=== PATIENT | female | born 1995 | race Hispanic/Latino ===

== ENCOUNTER 2024-05-15 17:45 | Day surgery (SDC) | payer OTHER ==
[2024-05-15] MEDS ORDERED: hydrALAZINE 20 MG/ML VIAL SLOW IVP PRN (18:04)
[2024-05-15 18:32] VITALS: BMI 35.1
[2024-05-15 19:55] LABS: Bilirubin Neg (Negative); Blood, Urine Negative (Negative); Clarity Clear (Clear); Glucose, Urine (Dipstick) Normal (Negative); Ketone, Urine Negative (Negative); Leukocyte Negative (Negative); Nitrite Negative (Negative); Protein, Urine (Dipstick) Negative (Neg-Trace); Specific Gravity, Urine 1.015 (1.005-1.030); Urobilinogen Normal mg/dL (Less than 2)
[2024-05-15 20:24] LABS: Bacteria/HPF Rare-Few HPF (None Seen); CAUTI Indications for Culture Pregnancy; RBC/HPF None Seen HPF (0-3); Squamous Epithelial 0-3 HPF (0-3); Urine Culture Reflex Yes Yes; WBC/HPF 0-3 HPF (0-3)
[2024-05-15] MEDS ORDERED: Lactated Ringer's 1,000 ML IV SCH (20:45)
== END 2024-05-15 18:53 | disposition home or self-care (01) ==
LOC: CSHLD/OP 17:45
PROVIDERS: ATTEND Emergency Medicine
DX: O47.03 False labor before 37 completed weeks of gestation, third trimester (principal); O99.213 Obesity complicating pregnancy, third trimester; Z3A.28 28 weeks gestation of pregnancy
CPT/HCPCS: 76817; 81001; 87086; 87480; 87510; 87660; 96360; 96365; 99284

== ENCOUNTER 2024-07-22 09:25 | Day surgery (SDC) | payer OTHER | END 2024-07-22 12:09 | disposition home or self-care (01) | LOC: CSHLD/OP 09:25 | PROVIDERS: ATTEND Emergency Medicine | DX: O47.1 False labor at or after 37 completed weeks of gestation (principal); O99.013 Anemia complicating pregnancy, third trimester; Z79.899 Other long term (current) drug therapy; Z98.890 Other specified postprocedural states; Z98.84 Bariatric surgery status; Z3A.38 38 weeks gestation of pregnancy | CPT/HCPCS: 99282 ==

== ENCOUNTER 2024-08-01 09:20 | Day surgery (SDC) | payer OTHER ==
[2024-08-01] MEDS ORDERED: hydrALAZINE 20 MG/ML VIAL SLOW IVP PRN (09:59)
[2024-08-01 10:18] VITALS: BMI 34.7
== END 2024-08-01 10:31 | disposition home or self-care (01) ==
LOC: CSHLD/OP 09:20
PROVIDERS: ATTEND Student in an Organized Health Care Education/Training Program
DX: O47.1 False labor at or after 37 completed weeks of gestation (principal); O99.891 Other specified diseases and conditions complicating pregnancy; R06.02 Shortness of breath; O99.213 Obesity complicating pregnancy, third trimester; O99.013 Anemia complicating pregnancy, third trimester; Z3A.39 39 weeks gestation of pregnancy; Z79.899 Other long term (current) drug therapy
CPT/HCPCS: 99282

== ENCOUNTER 2024-08-04 19:00 | Inpatient (IN) | payer OTHER ==
[2024-08-04 23:27] VITALS: BMI 34.7
[2024-08-05] MEDS ORDERED: Tranexamic Acid 1,000 MG/10 ML VIAL IVP PRN (01:00)
[2024-08-05] MEDS ORDERED: Lactated Ringer's 1,000 ML IV SCH (01:00)
[2024-08-05] MEDS ORDERED: Lidocaine 1% (PF) 30 ML VIAL SC PRN (01:00)
[2024-08-05] MEDS ORDERED: Ondansetron PF 4 MG/2 ML Vial IVP PRN ×3 (01:00→13:56)
[2024-08-05] MEDS ORDERED: hydrALAZINE 20 MG/ML VIAL SLOW IVP PRN ×2 (01:00→13:56)
[2024-08-05] MEDS ORDERED: Promethazine HCl 25 MG/ML VIAL IM PRN ×3 (01:00→13:56)
[2024-08-05] MEDS ORDERED: Diphenoxylate HCl/Atropine Tablet PO PRN (01:00)
[2024-08-05] MEDS ORDERED: Oxytocin 30 units/NS 500 ML 500 ML IV SCH (01:00)
[2024-08-05] MEDS ORDERED: Acetaminophen 500 MG TAB PO PRN (01:00)
[2024-08-05] MEDS ORDERED: Methylergonovine 0.2 MG/ML VIAL IM PRN (01:00)
[2024-08-05 01:28] LABS: Hematocrit 31.8 % (34.9-44.5); Hemoglobin 10.6 g/dL (12.0-15.5); Mean Corpuscular HGB CONC 33.3 g/dL (32.0-36.0); Mean Corpuscular Hemoglobin 27.7 pg (27.0-33.0); Mean Corpuscular Volume 83.2 fL (81.6-98.3); Mean Platelet Volume 9.2 fL (7.4-10.4); Platelet Count 241 10x3/uL (150-450); RBC Distribution Width 14.6 % (11.5-14.5); Red Blood Cell (RBC) Count 3.82 10x6/uL (3.90-5.03); White Blood Cell (WBC) Count 6.5 10x3/uL (3.5-10.5)
[2024-08-05 02:04] LABS: HBsAg Index 0.18 S/CO (0-0.99); Hep B Surf Ag - L&D Non-Reactive S/CO (NonReactive)
[2024-08-05 02:05] LABS: Syphilis Antibody Nonreactive (Nonreactive); Syphilis Antibody Index 0.05 S/CO (<1.00 Non-Reactive)
[2024-08-05] MEDS: Misoprostol 100 MCG TAB VAG SCH (03:00)
[2024-08-05] MEDS: fentaNYL/Ropivacaine Epidural 100 ML ONE (13:00)
[2024-08-05] MEDS ORDERED: ePHEDrine Sulfate 50 MG/10 ML VIAL SLOW IVP PRN (13:18)
[2024-08-05] MEDS ORDERED: diphenhydrAMINE 50 MG/ML VIAL IVP PRN (13:18)
[2024-08-05] MEDS ORDERED: Naloxone HCl 0.4 mg/ml Vial IVP PRN ×2 (13:18)
[2024-08-05] MEDS ORDERED: Moisturizing Cream (Eucerin) 113 GM JAR TOP PRN (13:18)
[2024-08-05] MEDS ORDERED: Lactated Ringer's 500 ML IV PRN (13:18)
[2024-08-05] MEDS ORDERED: fentaNYL 2 mcg/Ropivacaine 0.2% Epidural 100 ML CADD EPIDURAL SCH (13:30)
[2024-08-05] MEDS ORDERED: Communication Order-Pharmacy FS SCH (13:30)
[2024-08-05] MEDS: Carboprost 250 MCG/ML AMP IM PRN (13:36)
[2024-08-05] MEDS: Misoprostol 200 MCG TAB PR PRN (13:38)
[2024-08-05] MEDS: Diphenoxylate HCl/Atropine Tablet PO PRN (13:48)
[2024-08-05] MEDS ORDERED: Milk Of Magnesia 30 ML UDCUP PO PRN (13:56)
[2024-08-05] MEDS ORDERED: Bisacodyl 10 MG SUPP PR PRN (13:56)
[2024-08-05] MEDS ORDERED: Boostrix 0.5 ML (Tdap) VIAL (>/=7 yrs of age) IM ONE (13:56)
[2024-08-05] MEDS ORDERED: diphenhydrAMINE 25 MG CAP PO PRN (13:56)
[2024-08-05] MEDS ORDERED: Benzocaine-Menthol 82.5 ML CAN TOP PRN (13:56)
[2024-08-05] MEDS ORDERED: Preparation H Ointment 28 GM TUBE PR PRN (13:56)
[2024-08-05] MEDS ORDERED: Lanolin Ointment 7 GM TUBE TOP PRN (13:56)
[2024-08-05 15:05] LABS: D-Dimer Test 1.57 mcg/mL (0.19-0.50); PTT 29.3 sec (22.0-33.0); Prothrombin Time 10.6 sec (9.5-12.1)
[2024-08-05] MEDS: Ferrous Sulfate 325 MG TAB PO SCH (18:47)
[2024-08-05] MEDS: Misoprostol 100 MCG TAB ONE (19:27)
[2024-08-05] MEDS: Ibuprofen 800 MG TAB PO SCH (19:27)
[2024-08-05] MEDS: Docusate 100 MG CAP PO SCH (20:11)
[2024-08-05] MEDS: Acetaminophen 325 MG TAB PO PRN (23:20)
[2024-08-06 09:14] LABS: Hemoglobin 9.7 g/dL (12.0-15.5)
[2024-08-06] MEDS: Prenatal Vitamin 1 TAB PO SCH (11:32)
[2024-08-06 11:36] VITALS: BP 130/83; TEMP 98.2
== END 2024-08-06 18:15 | disposition home or self-care (01) | DRG 806 ==
LOC: CSHLD 21:00 → CSHPP 08-05 18:00
PROVIDERS: ADMIT Obstetrics & Gynecology; ATTEND Obstetrics & Gynecology
PROC: 10E0XZZ Delivery of Products of Conception, External Approach (ICD-10-PCS; principal; 2024-08-05)
PROC: 10907ZC Drainage of Amniotic Fluid, Therapeutic from Products of Conception, Via Natural or Artificial Opening (ICD-10-PCS; 2024-08-05)
PROC: 10H07YZ Insertion of Other Device into Products of Conception, Via Natural or Artificial Opening (ICD-10-PCS; 2024-08-05)
PROC: 0UQMXZZ Repair Vulva, External Approach (ICD-10-PCS; 2024-08-05)
DX: O99.02 Anemia complicating childbirth (principal); O72.1 Other immediate postpartum hemorrhage; Z37.0 Single live birth; D64.9 Anemia, unspecified; E66.9 Obesity, unspecified; O69.81X0 Labor and delivery complicated by cord around neck, without compression, not applicable or unspecified; O99.214 Obesity complicating childbirth; Z3A.40 40 weeks gestation of pregnancy; Z98.890 Other specified postprocedural states; O70.0 First degree perineal laceration during delivery
CPT/HCPCS: 36415; 51702; 85014; 85018; 85027; 85049; 85300; 85362; 85384; 85610; 85730; 86780; 86850; 86900; 86901; 87340; J3490